=== PATIENT | male | born 1935 | race Caucasian/White ===

== ENCOUNTER 2022-10-19 07:13 | Observation (INO) | payer MEDICARE ==
[2022-10-15 11:15] LABS: CREATININE 1.7 mg/dL (0.5-1.5); POTASSIUM 4.9 mmol/L (3.5-5.1)
[2022-10-15 11:17] LABS: BASOPHILS % (AUTO) 0.2 % (0.0-5.0); EOSINOPHILS % (AUTO) 3.2 % (0.0-8.0); LYMPHOCYTES % (AUTO) 13.8 % (21.0-51.0); MEAN CORPUSCULAR HEMOGLOBIN 31.2 pg (27.0-33.0); MEAN CORPUSCULAR VOLUME 97.7 fL (79-99); MONOCYTES % (AUTO) 10.1 % (3.0-13.0); NEUTROPHILS % (AUTO) 72.2 % (40.0-77.0); PLATELET COUNT (AUTO) 210 K/uL (130-400); RED BLOOD CELL COUNT(AUTO) 4.71 MIL/uL (4.50-6.20); RED CELL DISTRIBUTION WIDTH 13.3 % (11.0-15.5); WHITE BLOOD COUNT (AUTO) 8.4 K/uL (4.8-10.8)
[2022-10-15 12:32] LABS: INR 1.05 (0.85-1.15); PROTHROMBIN TIME 11.4 SEC (9.6-11.6)
[2022-10-15 12:34] LABS: PARTIAL THROMBOPLASTIN TIME 28.6 SEC (26.3-35.5)
[2022-10-18 16:07] VITALS: BP 150/74
[2022-10-19] VITALS (26 sets, daily range): BP systolic 100–166; BP diastolic 56–89
[~2022-10-19] VITALS: Ht 165.1 cm; Wt 97.3 kg
[~2022-10-19 07:13] MED LIST: AEC81 PO; ALLO100T PO; ATOR10 PO; CALCIUM PO; CETI5TAB12 PO; CINN500C PO; FISH1CAP27 PO; HYDR12.54 PO; LEVO50TA11 PO; LOSA100T58 PO; LUTE20TA PO; MELA10TA3 PO; METO50TA9 PO; MULT-1367 PO; OMEP40CA21 PO; OXYB5TAB15 PO; TAMS-1 PO; TEST60GE TD; UBID100C45 PO; VIT1CAPS47 PO; VITAMIN D PO
[2022-10-19] MEDS ORDERED: TRANEXAMIC ACID 1000MG/10ML ONE (07:43)
[2022-10-19] MEDS ORDERED: LACTATED RINGERS 1000ML 1,000 ML IV SCH (08:00)
[2022-10-19] MEDS ORDERED: CEFAZOLIN SODIUM 2 GM VIAL IVPB SCH (08:00)
[2022-10-19] MEDS: MULTIVITAMIN TABLET PO SCH (09:00)
[2022-10-19] MEDS: LOSARTAN 100 MG TABLET PO SCH (09:00)
[2022-10-19] MEDS ORDERED: ONDANSETRON 4MG INJ ONE ×2 (10:01→12:07)
[2022-10-19] MEDS ORDERED: LIDOCAINE PF 100MG/5ML (2%) SYRINGE 5ML ONE (10:01)
[2022-10-19] MEDS ORDERED: DEXAMETHASONE SOD PHOSPHATE 10MG/ML 1ML VIAL ONE (10:02)
[2022-10-19] MEDS ORDERED: GLYCOPYRROLATE 1 MG/5 ML SYRINGE ONE (10:02)
[2022-10-19] MEDS ORDERED: PROPOFOL 10 MG/ML 20ML VIAL IV ONE (10:02)
[2022-10-19] MEDS ORDERED: NEOSTIGMINE 5MG/5ML SYR IV ONE (10:03)
[2022-10-19] MEDS ORDERED: ROCURONIUM 10MG/1ML SYR 10 MG/ML ML ONE (10:03)
[2022-10-19] MEDS ORDERED: MIDAZOLAM HCL 1 MG/ML 2ML VIAL ONE (10:03)
[2022-10-19] MEDS ORDERED: KETOROLAC 30MG VIAL (30MG/ML) ONE (10:03)
[2022-10-19] MEDS ORDERED: FENTANYL CITRATE PF 50 MCG/1 ML 2ML VIAL ONE ×2 (10:04→11:40)
[2022-10-19] MEDS: HYDROCHLOROTHIAZIDE 25 MG TABLET PO SCH (10:37)
[2022-10-19] MEDS: PANTOPRAZOLE 40 MG TAB DR PO SCH (10:41)
[2022-10-19] MEDS ORDERED: CEFAZOLIN SODIUM 2 GM VIAL IV ONE (11:00)
[2022-10-19] MEDS ORDERED: TRANEXAMIC ACID 1000MG/10ML IV ONE (11:22)
[2022-10-19] MEDS ORDERED: MORPHINE 4 MG SYG IVP PRN (11:30)
[2022-10-19] MEDS ORDERED: HYDROCODONE/ACETAMINOPHEN 10/325 MG TAB PO PRN (11:30)
[2022-10-19] MEDS ORDERED: ONDANSETRON 4MG INJ IVP PRN (11:30)
[2022-10-19] MEDS ORDERED: POTASSIUM CHLORIDE 10% ELIXIR 20 MEQ/15 ML UDCUP PO PRN (11:30)
[2022-10-19] MEDS ORDERED: POTASSIUM CHLORIDE 20MEQ/100ML 100 ML IV PRN (11:30)
[2022-10-19] MEDS ORDERED: KCL 20 MEQ ERTAB PO PRN (11:30)
[2022-10-19] MEDS ORDERED: LIDOCAINE HCL-MPF 1% 2ML VIAL IV PRN (11:30)
[2022-10-19] MEDS ORDERED: SUGAMMADEX SODIUM 200 MG/2 ML VIAL IV ONE (13:03)
[2022-10-19] MEDS ORDERED: HYDROMORPHONE 1 MG INJ ONE (13:12)
[2022-10-19] MEDS: ACETAMINOPHEN 1,000 MG/100 ML VIAL IV SCH ×2 (13:36→18:04)
[2022-10-19] MEDS ORDERED: IBUPROFEN 800MG + NS 250ML IV SCH (14:30)
[2022-10-19] MEDS: HYDROCODONE/ACETAMINOPHEN 5/325 MG TAB PO PRN (15:41)
[2022-10-19] MEDS: CEFAZOLIN SODIUM 1 GM VIAL IVP SCH ×2 (16:42→23:53)
[2022-10-19] MEDS: TRAMADOL HCL 50 MG TABLET PO SCH ×3 (18:00→23:53)
[2022-10-19] MEDS ORDERED: ALLOPURINOL 100 MG TABLET PO SCH (21:00)
[2022-10-19] MEDS ORDERED: LEVOTHYROXINE 50 MCG TABLET PO SCH (21:00)
[2022-10-19] MEDS ORDERED: TAMSULOSIN HCL 0.4 MG CAP.ER.24H PO SCH (21:00)
[2022-10-19] MEDS ORDERED: METOPROLOL SUCCINATE 50 MG TAB.SR.24H PO SCH (21:00)
[2022-10-19] MEDS ORDERED: OXYBUTYNIN CHLORIDE 5 MG TABLET PO SCH (21:00)
[2022-10-19] MEDS ORDERED: ***HM*** (Melatonin 10 MG) PO SCH (21:00)
[2022-10-19] MEDS: FAMOTIDINE 20MG TAB PO SCH (21:11)
[2022-10-19] MEDS: ASPIRIN 81 MG EC TAB PO SCH (21:11)
[2022-10-19] MEDS: 0.9%NACL 1000ML 1,000 ML IV SCH (21:11)
[2022-10-19] MEDS: CALDOLOR 800MG+NS 250ML 250 ML IV SCH (22:38)
[2022-10-20 03:55] VITALS: BP 119/60
[2022-10-20] MEDS: HYDROCODONE/ACETAMINOPHEN 5/325 MG TAB PO PRN ×2 (04:09→14:29)
[2022-10-20 04:34] LABS: HEMATOCRIT 41.1 % (42-54); MEAN CORPUSCULAR HEMOGLOBIN 30.5 pg (27.0-33.0); MEAN CORPUSCULAR HGB CONC 31.9 g/dL (32.0-36.0); MEAN CORPUSCULAR VOLUME 95.6 fL (79-99); RED BLOOD CELL COUNT(AUTO) 4.3 MIL/uL (4.50-6.20); RED CELL DISTRIBUTION WIDTH 13.4 % (11.0-15.5)
[2022-10-20 04:55] LABS: POTASSIUM 5.4 mmol/L (3.5-5.1)
[2022-10-20] MEDS: CALDOLOR 800MG+NS 250ML 250 ML IV SCH (06:13)
[2022-10-20] MEDS: TRAMADOL HCL 50 MG TABLET PO SCH (06:14)
[2022-10-20] MEDS: LEVOTHYROXINE 50 MCG TABLET PO SCH ×2 (06:39→07:30)
[2022-10-20] MEDS: 0.9%NACL 1000ML 1,000 ML IV SCH (07:30)
[2022-10-20] MEDS ORDERED: POLYETHYLENE GLYCOL 3350 17 GM POWD.PACK PO SCH (09:00)
[2022-10-20] MEDS: LOSARTAN 100 MG TABLET PO SCH (09:05)
[2022-10-20] MEDS: FAMOTIDINE 20MG TAB PO SCH (09:05)
[2022-10-20] MEDS: MULTIVITAMIN TABLET PO SCH (09:05)
[2022-10-20] MEDS: HYDROCHLOROTHIAZIDE 25 MG TABLET PO SCH (09:05)
[2022-10-20] MEDS: ASPIRIN 81 MG EC TAB PO SCH (09:05)
[2022-10-20] MEDS: PANTOPRAZOLE 40 MG TAB DR PO SCH (09:12)
[2022-10-20 13:13] VITALS: BP 115/56
[2022-10-22] MEDS ORDERED: BISACODYL 10 MG SUPP.RECT RC PRN (11:30)
== END 2022-10-20 16:00 | disposition home or self-care (01) ==
LOC: DAH 07:13 → DAHIP 07:14 → UNDOADMOB 11:17 → LDH 11:17 → 4DH 14:19
PROVIDERS: ADMIT Orthopaedic Surgery; ATTEND Orthopaedic Surgery
DX: M17.12 Unilateral primary osteoarthritis, left knee (principal); Z20.822 Contact with and (suspected) exposure to COVID-19; M88.88 Osteitis deformans of other bones; I25.10 Atherosclerotic heart disease of native coronary artery without angina pectoris; Z79.899 Other long term (current) drug therapy
CPT/HCPCS: 80048 ×2; 85025; 85610; 85730; 87426; 36415 ×2; 87641; 27447; 0055T; 96376; 96365; 96366 ×2; 96375 ×2; 97161; 97039 ×3; 97530 ×3; 85027; 97116 ×2; A6260; C1776 ×4; G0378 ×25; A4663; J7030; A4649 ×4; J7120; J3010 ×2; J0690 ×4; J1170; J3490 ×3; J1100; J2710; J2001; J2250; J2704; J2405 ×2; J1885; J1741 ×2; G0168; A6255; A6254; A5120; A4215; A4223; A4222; A4221; J2270

== ENCOUNTER 2023-08-16 05:35 | Observation (INO) | payer MEDICARE ==
[2023-08-15 13:39] VITALS: BP 148/70; PULSE 53; RESP 16
[2023-08-15 14:41] LABS: CREATININE 1.6 mg/dL (0.5-1.5)
[2023-08-16] VITALS (28 sets, daily range): BP systolic 99–145; BP diastolic 54–68; PULSE 61–97; RESP 15–22; O2SAT 91–99
[~2023-08-16] VITALS: Ht 165.1 cm; Wt 91.0 kg
[~2023-08-16 05:35] MED LIST changes: -ATOR10 PO; +ATOR20TA PO; -CINN500C PO; +CINNAMON PO; +FINA5TAB41 PO; -LOSA100T58 PO; +LOSA100T59 PO; -MELA10TA3 PO; -OXYB5TAB15 PO; +OXYB5TAB20 PO; +[UNRECOGNIZED DRUG - REMARK] TP
[2023-08-16] MEDS ORDERED: CEFAZOLIN SODIUM 2 GM VIAL ONE (06:47)
[2023-08-16] MEDS ORDERED: LACTATED RINGERS 1000ML 1,000 ML IV ONE (06:47)
[2023-08-16] MEDS ORDERED: SCOPOLAMINE HYDROBROMIDE 1 EACH ADH..PATCH TD ONE (07:53)
[2023-08-16] MEDS ORDERED: ROCURONIUM 10MG/1ML SYR 10 MG/ML ML ONE (07:57)
[2023-08-16] MEDS ORDERED: ONDANSETRON 4MG INJ ONE ×2 (07:57→10:48)
[2023-08-16] MEDS ORDERED: DEXAMETHASONE SOD PHOSPHATE 10MG/ML 1ML VIAL ONE (07:57)
[2023-08-16] MEDS ORDERED: PROPOFOL 10 MG/ML 20ML VIAL IV ONE (07:57)
[2023-08-16] MEDS ORDERED: DiphenhydrAMINE HCL 50 MG/ML VIAL ONE (07:57)
[2023-08-16] MEDS ORDERED: LIDOCAINE PF 100MG/5ML (2%) SYRINGE 5ML ONE (07:57)
[2023-08-16] MEDS ORDERED: FENTANYL CITRATE PF 50 MCG/1 ML 2ML VIAL ONE (07:58)
[2023-08-16] MEDS ORDERED: CEFAZOLIN SODIUM 2 GM VIAL IVPB ONE (08:00)
[2023-08-16] MEDS ORDERED: ROPIVACAINE 0.5% 5MG/ML 30ML IJ ONE (08:02)
[2023-08-16] MEDS ORDERED: SUCCINYLCHOLINE 200MG/10ML SYR ONE (08:13)
[2023-08-16] MEDS ORDERED: SUCCINYLCHOLINE CHLORIDE 20 MG/ML 10 ML VIAL ONE (08:16)
[2023-08-16] MEDS ORDERED: EPHEDRINE SULFATE 50 MG/ML AMPULE ONE (08:29)
[2023-08-16] MEDS ORDERED: TRANEXAMIC ACID 1000MG/10ML ONE (09:34)
[2023-08-16] MEDS ORDERED: TRANEXAMIC ACID 1000MG/10ML IV ONE (09:49)
[2023-08-16] MEDS ORDERED: GLYCOPYRROLATE 1 MG/5 ML SYRINGE ONE (09:49)
[2023-08-16] MEDS ORDERED: NEOSTIGMINE 5MG/5ML SYR IV ONE (09:49)
[2023-08-16] MEDS ORDERED: MEPERIDINE-PF 25 MG/ML SYG ONE (10:01)
[2023-08-16] MEDS ORDERED: ONDANSETRON 4MG INJ IVP PRN (10:30)
[2023-08-16] MEDS ORDERED: POTASSIUM CHLORIDE 20MEQ/100ML 100 ML IV PRN (10:30)
[2023-08-16] MEDS ORDERED: HYDROCODONE/ACETAMINOPHEN 10/325 MG TAB PO PRN (10:30)
[2023-08-16] MEDS ORDERED: MORPHINE 4 MG SYG IVP PRN (10:30)
[2023-08-16] MEDS ORDERED: POTASSIUM CHLORIDE 10% ELIXIR 20 MEQ/15 ML UDCUP PO PRN (10:30)
[2023-08-16] MEDS ORDERED: KCL 20 MEQ ERTAB PO PRN (10:30)
[2023-08-16] MEDS ORDERED: ACETAMINOPHEN 1,000 MG/100 ML VIAL IV ONE (10:47)
[2023-08-16] MEDS ORDERED: MORPHINE 2 MG SYG ONE ×2 (10:48→11:11)
[2023-08-16] MEDS ORDERED: KETOROLAC 15MG/ML VIAL (15MG/ML) ONE (10:48)
[2023-08-16] MEDS: ACETAMINOPHEN 1,000 MG/100 ML VIAL IV SCH ×3 (10:59→22:02)
[2023-08-16] MEDS: 0.9%NACL 1000ML 1,000 ML IV SCH ×2 (12:33→20:03)
[2023-08-16] MEDS: IBUPROFEN 800MG + NS 250ML IV SCH ×2 (12:42→19:54)
[2023-08-16] MEDS ORDERED: CEFAZOLIN SODIUM 2 GM in 0.9%NACL 50ML 50 ML IV SCH (15:30)
[2023-08-16] MEDS: CEFAZOLIN SODIUM 2 GM VIAL IVPB SCH ×2 (15:47→22:02)
[2023-08-16] MEDS: TRAMADOL HCL 50 MG TABLET PO PRN (15:48)
[2023-08-16] MEDS: ASPIRIN 81 MG EC TAB PO SCH (19:56)
[2023-08-16] MEDS ORDERED: METOPROLOL SUCCINATE 50 MG TAB.SR.24H PO SCH (21:00)
[2023-08-16] MEDS ORDERED: TAMSULOSIN HCL 0.4 MG CAP.ER.24H PO SCH (21:00)
[2023-08-16] MEDS ORDERED: CETIRIZINE HCL 5 MG TABLET PO SCH (21:00)
[2023-08-16] MEDS ORDERED: ALLOPURINOL 100 MG TABLET PO SCH (21:00)
[2023-08-16] MEDS ORDERED: FAMOTIDINE 20MG TAB PO SCH (21:00)
[2023-08-16] MEDS ORDERED: OXYBUTYNIN CHLORIDE 5 MG TABLET PO SCH (21:00)
[2023-08-17] VITALS: BP 131/62; PULSE 100; RESP 20
[2023-08-17] MEDS: IBUPROFEN 800MG + NS 250ML IV SCH (04:24)
[2023-08-17 04:30] VITALS: BP 99/63; PULSE 90; RESP 18
[2023-08-17 05:15] LABS: HEMATOCRIT 38.5 % (42-54); MEAN CORPUSCULAR HGB CONC 31.7 g/dL (32.0-36.0); MEAN CORPUSCULAR VOLUME 94.6 fL (79-99); RED BLOOD CELL COUNT(AUTO) 4.07 MIL/uL (4.50-6.20); RED CELL DISTRIBUTION WIDTH 14.1 % (11.0-15.5); WHITE BLOOD COUNT (AUTO) 14.4 K/uL (4.8-10.8)
[2023-08-17 05:44] LABS: POTASSIUM 4.5 mmol/L (3.5-5.1)
[2023-08-17] MEDS: TRAMADOL HCL 50 MG TABLET PO PRN (06:06)
[2023-08-17] MEDS: 0.9%NACL 1000ML 1,000 ML IV SCH (06:30)
[2023-08-17] MEDS ORDERED: LEVOTHYROXINE 50 MCG TABLET PO SCH (06:30)
[2023-08-17 07:57] VITALS: BP 106/52; PULSE 73; RESP 17
[2023-08-17 08:10] VITALS: O2SAT 99
[2023-08-17] MEDS: ASPIRIN 81 MG EC TAB PO SCH (08:40)
[2023-08-17] MEDS ORDERED: LOSARTAN 100 MG TABLET PO SCH (09:00)
[2023-08-17] MEDS ORDERED: NON-FORMULARY MEDICATION 1 EACH (Hydrochlorothiazide 12.5 MG) PO SCH (09:00)
[2023-08-17] MEDS ORDERED: PANTOPRAZOLE 40 MG TAB DR PO SCH (09:00)
[2023-08-17] MEDS ORDERED: POLYETHYLENE GLYCOL 3350 17 GM POWD.PACK PO SCH (09:00)
[2023-08-17] MEDS ORDERED: FINASTERIDE 5 MG TABLET PO SCH (09:00)
[2023-08-17] MEDS ORDERED: NON-FORMULARY MEDICATION 1 EACH (Omeprazole 40 MG) PO SCH (09:00)
[2023-08-17] MEDS ORDERED: HYDROCHLOROTHIAZIDE 25 MG TABLET PO SCH ×2 (09:00→21:00)
[2023-08-17] MEDS ORDERED: ASPIRIN 81 MG EC TAB PO SCH (09:00)
[2023-08-17 11:02] VITALS: BP 127/84; PULSE 75; RESP 16
[2023-08-17 16:17] VITALS: BP 128/62; PULSE 75; RESP 20
[2023-08-19] MEDS ORDERED: BISACODYL 10 MG SUPP.RECT RC PRN (10:30)
== END 2023-08-17 18:36 | disposition home or self-care (01) ==
LOC: DAH 05:35 → DAHIP 05:37 → 4BH 11:52
PROVIDERS: ADMIT Orthopaedic Surgery; ATTEND Orthopaedic Surgery
DX: M17.11 Unilateral primary osteoarthritis, right knee (principal); I10 Essential (primary) hypertension; L03.116 Cellulitis of left lower limb; N40.0 Benign prostatic hyperplasia without lower urinary tract symptoms; Z79.82 Long term (current) use of aspirin; Z90.49 Acquired absence of other specified parts of digestive tract; Z79.899 Other long term (current) drug therapy; Z98.890 Other specified postprocedural states; Z96.652 Presence of left artificial knee joint; Z68.34 Body mass index [BMI] 34.0-34.9, adult
CPT/HCPCS: 80048 ×2; 36415 ×2; 87641; 96367 ×2; 96368; 27447; 96365; 96366 ×2; 97161; 97116 ×3; 85027; 97530 ×6; A6260; G0378 ×27; A4600; A4510; C1713; C1776 ×4; A4663; J7030; A4649 ×2; J7120; J1200; J3010; J3490 ×4; J0330 ×2; J1100; J2710; J2270 ×2; J2001; J2704; J2405 ×2; J2175; J2795; J1885; J1741 ×3; J0690 ×4; A6223; G0168; A6212; A5120; A4215; A4223; A4222; A4221